=== PATIENT | female | born 1945 | race Caucasian/White ===

== ENCOUNTER 2016-09-23 14:14 | Outpatient (CLI) | payer MEDICARE, BC | END 2016-09-23 14:15 | disposition home or self-care (01) | LOC: MADLAB 14:14 | PROVIDERS: ATTEND Internal Medicine Rheumatology | DX: L40.50 Arthropathic psoriasis, unspecified (principal); N39.0 Urinary tract infection, site not specified | CPT/HCPCS: 36415; 87077; 87086; 87186 ==

== ENCOUNTER 2016-12-14 11:19 | Outpatient (CLI) | payer MEDICARE, BC ==
[2016-12-14 11:49] LABS: #Basophils 0.1 thou/uL (0.0-0.2); #Eosinphils 0.1 thou/uL (0.0-0.7); #Lymphocytes 2.5 thou/uL (1.20-3.40); #Monocytes 0.5 thou/uL (0.11-0.59); %Basophils 1.2 % (0.0-1.0); %Eosinophils 1.8 % (0.0-10.0); %Lymphocytes 34.7 % (21.0-51.0); %Monocytes 6.4 % (0.0-10.0); %Neutrophils 55.9 % (42.0-75.0); Hemoglobin 11.6 g/dL (12.0-16.0); Mean Corpuscular HGB CONC 34.8 g/dL (32.0-36.0); Mean Corpuscular Hemoglobin 31.4 pg (27.0-31.0); Mean Corpuscular Volume 90.2 fl (81.0-99.0); Mean Platelet Volume 9.2 fL (7.4-10.4); Platelet Count 178 thou/uL (130-400); RBC Distribution Width 12.7 % (11.5-14.5); Red Blood Cell (RBC) Count 3.68 mill/uL (4.20-5.40); White Blood Cell (WBC) Count 7.1 thou/uL (4.8-10.8)
[2016-12-14 12:50] LABS: ALT (SGPT) 23 U/L (0-55); AST (SGOT) 40 U/L (5-34); Albumin 4.1 g/dL (3.4-4.8); Alkaline Phosphatase 69 U/L (40-150); Anion Gap 19 mmol/L (10-20); BUN (Urea Nitrogen) 12 mg/dL (9.8-20.1); Bilirubin, Total 0.5 mg/dL (0.2-1.2); Calc. Creatinine Clearance 0 mL/min (70-130); Calcium 9.5 mg/dL (7.8-10.44); Carbon Dioxide 21 mmol/L (23-31); Chloride 99 mmol/L (98-107); Estimated GFR-MDRD 59; Globulin 3.5 g/dL (2.4-3.5); Glucose 291 mg/dL (80-115); Protein, Total 7.6 g/dL (5.8-8.1); Sodium 135 mmol/L (136-145)
== END 2016-12-14 11:20 | disposition home or self-care (01) ==
LOC: MADLAB 11:19
PROVIDERS: ATTEND Internal Medicine Rheumatology
DX: L40.50 Arthropathic psoriasis, unspecified (principal)
CPT/HCPCS: 36415; 80053; 85025; 85652; 86140

== ENCOUNTER 2017-03-02 08:28 | Outpatient (CLI) | payer MEDICARE, BC ==
[2017-03-02 09:04] LABS: Hemoglobin A1c 10.8 % (4.0-6.0)
[2017-03-02 09:16] LABS: ALT (SGPT) 57 U/L (8-55); AST (SGOT) 82 U/L (5-34); Albumin 4.3 g/dL (3.4-4.8); Alkaline Phosphatase 80 U/L (40-150); Anion Gap 19 mmol/L (10-20); BUN (Urea Nitrogen) 15 mg/dL (9.8-20.1); Bilirubin, Total 0.6 mg/dL (0.2-1.2); Calc. Creatinine Clearance 0 mL/min (70-130); Calcium 9.6 mg/dL (7.8-10.44); Carbon Dioxide 20 mmol/L (23-31); Chloride 103 mmol/L (98-107); Estimated GFR-MDRD 71; Glucose 88 mg/dL (80-115); Potassium 3.8 mmol/L (3.5-5.1); Protein, Total 8.3 g/dL (6.0-8.3); Sodium 138 mmol/L (136-145)
[2017-03-02 09:36] LABS: Free T4 (Free Thyroxine) 1.23 ng/dL (0.70-1.48); Thyroid Stimulating Hormone 8.9573 uIU/mL (0.35-4.94)
== END 2017-03-02 08:29 | disposition home or self-care (01) ==
LOC: MADLAB 08:28
PROVIDERS: ATTEND Internal Medicine Endocrinology, Diabetes & Metabolism
DX: E11.65 Type 2 diabetes mellitus with hyperglycemia (principal); E03.9 Hypothyroidism, unspecified; I10 Essential (primary) hypertension
CPT/HCPCS: 36415; 80053; 83036; 84439; 84443

== ENCOUNTER 2017-05-12 13:57 | Outpatient (CLI) | payer MEDICARE, BC ==
[2017-05-12 14:38] LABS: ALT (SGPT) 45 U/L (8-55); AST (SGOT) 73 U/L (5-34); Albumin 3.9 g/dL (3.4-4.8); Alkaline Phosphatase 101 U/L (40-150); Anion Gap 16 mmol/L (10-20); BUN (Urea Nitrogen) 13 mg/dL (9.8-20.1); Bilirubin, Total 0.6 mg/dL (0.2-1.2); Calc. Creatinine Clearance 0 mL/min (70-130); Carbon Dioxide 22 mmol/L (23-31); Chloride 98 mmol/L (98-107); Estimated GFR-MDRD 47; Globulin 3.8 g/dL (2.4-3.5); Glucose 447 mg/dL (80-115); Potassium 4.1 mmol/L (3.5-5.1); Protein, Total 7.7 g/dL (6.0-8.3); Sodium 132 mmol/L (136-145)
[2017-05-12 14:50] LABS: #Basophils 0.1 thou/uL (0.0-0.2); #Eosinphils 0.1 thou/uL (0.0-0.7); #Lymphocytes 1.8 thou/uL (1.20-3.40); #Monocytes 0.3 thou/uL (0.11-0.59); #Neutrophils 3.2 thou/uL (1.40-6.50); %Eosinophils 2.1 % (0.0-10.0); %Lymphocytes 32.2 % (21.0-51.0); %Monocytes 5.9 % (0.0-10.0); %Neutrophils 58.7 % (42.0-75.0); Hemoglobin 11.4 g/dL (12.0-16.0); Mean Corpuscular HGB CONC 33.8 g/dL (32.0-36.0); Mean Corpuscular Hemoglobin 31.9 pg (27.0-31.0); Mean Corpuscular Volume 94.3 fl (81.0-99.0); Mean Platelet Volume 10.5 fL (7.4-10.4); Platelet Count 159 thou/uL (130-400); RBC Distribution Width 14.1 % (11.5-14.5); Red Blood Cell (RBC) Count 3.58 mill/uL (4.20-5.40); White Blood Cell (WBC) Count 5.5 thou/uL (4.8-10.8)
== END 2017-05-12 13:58 | disposition home or self-care (01) ==
LOC: MADLAB 13:57
PROVIDERS: ATTEND Internal Medicine Rheumatology
DX: L40.50 Arthropathic psoriasis, unspecified (principal)
CPT/HCPCS: 36415; 80053; 85025; 85652; 86140

== ENCOUNTER 2017-07-18 14:36 | Outpatient (CLI) | payer MEDICARE, BC ==
[2017-07-18 16:07] LABS: Anion Gap 21 mmol/L (10-20); BUN (Urea Nitrogen) 14 mg/dL (9.8-20.1); Calc. Creatinine Clearance 0 mL/min (70-130); Calcium 9.7 mg/dL (7.8-10.44); Carbon Dioxide 22 mmol/L (23-31); Chloride 98 mmol/L (98-107); Estimated GFR-MDRD 43; Glucose 492 mg/dL (83-110); Potassium 4.5 mmol/L (3.5-5.1); Sodium 136 mmol/L (136-145)
[2017-07-19 18:00] LABS: Bilirubin Negative (Negative); Blood, Urine Negative (Negative); Clarity CLEAR (Clear); Glucose, Urine (Dipstick) >=1000 mg/dL (Negative); Leukocyte Negative (Negative); Nitrite Negative (Negative); Protein, Urine (Dipstick) Negative (Neg-Trace); Urobilinogen 0.2 mg/dL (0.2-1.0)
[2017-07-19 18:10] LABS: Bacteria/HPF 2+ HPF (None Seen); Hyaline Casts/LPF 0-3 HYALINE CAST LPF (0-3 Hyaline); RBC/HPF 0-3 HPF (0-3); Squamous Epithelial None Seen HPF (0-3); WBC/HPF 21-50 HPF (0-3)
== END 2017-07-18 14:37 | disposition home or self-care (01) ==
LOC: MADLAB 14:36
PROVIDERS: ATTEND Internal Medicine Infectious Disease
DX: N39.0 Urinary tract infection, site not specified (principal)
CPT/HCPCS: 36415; 80048; 81001; 87077; 87086; 87186

== ENCOUNTER 2017-08-16 16:37 | Outpatient (CLI) | payer MEDICARE, BC ==
[2017-08-16 17:10] LABS: #Basophils 0.1 thou/uL (0.0-0.2); #Eosinphils 0.1 thou/uL (0.0-0.7); #Lymphocytes 3.3 thou/uL (1.20-3.40); #Monocytes 0.5 thou/uL (0.11-0.59); #Neutrophils 5.5 thou/uL (1.40-6.50); %Eosinophils 1.2 % (0.0-10.0); %Lymphocytes 34.9 % (21.0-51.0); %Monocytes 4.9 % (0.0-10.0); Hemoglobin 12.4 g/dL (12.0-16.0); Mean Corpuscular HGB CONC 34.5 g/dL (32.0-36.0); Mean Corpuscular Hemoglobin 31.6 pg (27.0-31.0); Mean Corpuscular Volume 91.5 fl (81.0-99.0); Mean Platelet Volume 10.5 fL (7.4-10.4); Platelet Count 190 thou/uL (130-400); RBC Distribution Width 12.1 % (11.5-14.5); Red Blood Cell (RBC) Count 3.92 mill/uL (4.20-5.40); White Blood Cell (WBC) Count 9.5 thou/uL (4.8-10.8)
[2017-08-16 17:26] LABS: ALT (SGPT) 45 U/L (8-55); AST (SGOT) 54 U/L (5-34); Albumin 4.3 g/dL (3.4-4.8); Alkaline Phosphatase 84 U/L (40-150); Anion Gap 19 mmol/L (10-20); BUN (Urea Nitrogen) 18 mg/dL (9.8-20.1); Bilirubin, Total 0.5 mg/dL (0.2-1.2); CRP (Inflammatory) 1.07 mg/dL (= or < 0.5); Calc. Creatinine Clearance 0 mL/min (70-130); Calcium 9.8 mg/dL (7.8-10.44); Carbon Dioxide 24 mmol/L (23-31); Chloride 97 mmol/L (98-107); Estimated GFR-MDRD 46; Globulin 4.1 g/dL (2.4-3.5); Glucose 292 mg/dL (83-110); Potassium 3.8 mmol/L (3.5-5.1); Protein, Total 8.4 g/dL (6.0-8.3); Sodium 136 mmol/L (136-145)
== END 2017-08-16 16:38 | disposition home or self-care (01) ==
LOC: MADLAB 16:37
PROVIDERS: ATTEND Internal Medicine Rheumatology
DX: L40.50 Arthropathic psoriasis, unspecified (principal)
CPT/HCPCS: 36415; 80053; 85025; 85652; 86140

== ENCOUNTER 2017-09-29 14:05 | Outpatient (CLI) | payer MEDICARE, BC ==
[2017-09-29 20:17] LABS: Hemoglobin A1c 12.3 % (4.0-6.0)
[2017-09-29 20:35] LABS: Free T4 (Free Thyroxine) 1.25 ng/dL (0.70-1.48)
== END 2017-09-29 14:06 | disposition home or self-care (01) ==
LOC: MADLAB 14:05
PROVIDERS: ATTEND Internal Medicine Endocrinology, Diabetes & Metabolism
DX: E03.9 Hypothyroidism, unspecified (principal); I10 Essential (primary) hypertension; E11.65 Type 2 diabetes mellitus with hyperglycemia
CPT/HCPCS: 36415; 83036; 84439; 84443

== ENCOUNTER 2018-02-15 13:42 | Emergency (ER) | payer MEDICARE, BC ==
[~2018-02-15 13:42] MED LIST: Iopamidol 370 76% 100 ML VIAL ONE; Sodium Chloride 0.9% 1,000 ML BAG ONE; Sodium Chloride 0.9% 100 ML BAG ONE
[2018-02-15 14:34] LABS: ALT (SGPT) 31 U/L (8-55); AST (SGOT) 28 U/L (5-34); Albumin 4.2 g/dL (3.4-4.8); Alkaline Phosphatase 83 U/L (40-150); Anion Gap 21 mmol/L (10-20); BUN (Urea Nitrogen) 12 mg/dL (9.8-20.1); Bilirubin, Total 1.6 mg/dL (0.2-1.2); Calc. Creatinine Clearance 0 mL/min (70-130); Calcium 9.8 mg/dL (7.8-10.44); Carbon Dioxide 22 mmol/L (23-31); Chloride 90 mmol/L (98-107); Estimated GFR-MDRD 36; Globulin 4.3 g/dL (2.4-3.5); Glucose 377 mg/dL (83-110); Potassium 4.2 mmol/L (3.5-5.1); Protein, Total 8.5 g/dL (6.0-8.3); Sodium 129 mmol/L (136-145)
--- NOTE | 2018-02-15 14:38 | RAD ---
SINGLE VIEW CHEST: Date: 02/15/18 COMPARISON: 01/27/16. HISTORY: Altered mental status. FINDINGS: Single view of the chest shows a normal sized cardiomediastinal silhouette. There is no evidence of c onsolidation, mass, or pleural effusion. The bones are unremarkable. IMPRESSION: No evidence of acute cardiopulmonary disease. POS: [facility]
[2018-02-15 14:48] LABS: Hemoglobin 13.3 g/dL (12.0-16.0); Lymphocytes 26 % (21-51); MDiff Complete? YES; Mean Corpuscular HGB CONC 33.1 g/dL (32.0-36.0); Mean Corpuscular Hemoglobin 28.6 pg (27.0-31.0); Mean Corpuscular Volume 86.5 fL (78.0-98.0); Monocytes 5 % (0-10); Neutrophil 67 % (42-75); PLT Morphology Comment Appears Adequate; Platelet Count 220 thou/uL (130-400); RBC Distribution Width 12.1 % (11.5-14.5); Reactive Lymphocytes 2 % (0-10); Red Blood Cell (RBC) Count 4.64 mill/uL (4.20-5.40); White Blood Cell (WBC) Count 13.2 thou/uL (4.8-10.8)
[2018-02-15] MEDS ORDERED: Acetaminophen 500 MG TAB ONE (15:21)
[2018-02-15] MEDS ORDERED: Ondansetron HCl/PF 4 MG/2 ML Vial ONE (15:21)
[2018-02-15] MEDS ORDERED: Vancomycin HCl 500 MG VIAL ONE (15:21)
[2018-02-15] MEDS ORDERED: Piperacillin/Tazobactam 3.375 GM VIAL ONE (15:21)
[2018-02-15 16:08] LABS: Bilirubin Negative (Negative); Blood, Urine Small (Negative); Clarity Slightly Cloudy (Clear); Glucose, Urine (Dipstick) >=1000 mg/dL (Negative); Leukocyte Small (Negative); Nitrite Positive (Negative); Protein, Urine (Dipstick) 100 mg/dL (Neg-Trace); Specific Gravity, Urine 1.015 (1.005-1.030); Urobilinogen 0.2 mg/dL (0.2-1.0)
[2018-02-15 16:09] LABS: Bacteria/HPF 1+ HPF (None Seen)
--- NOTE | 2018-02-15 16:21 | CT ---
CT ABDOMEN AND PELVIS WITH IV CONTRAST: 02/15/18 HISTORY: Nausea, vomiting, elevated WBCs, psoriasis. FINDINGS: Comparison is made with exam of 03/29/15. The lung bases are clear. The patient is postcholecystectomy. The liver, spleen, pancreas, adrenal gl ands and left kidney are unremarkable. There are new right perinephric inflammatory changes. Residual left perinephric inflammatory changes are chronic. No calculi seen in the kidneys, ureters or the ur inary bladder. The previously noted left sided calcific densities (adjacent to the left ureter) are l ikely phleboliths. No free air, free fluid or lymphadenopathy seen in the abdomen or pelvis. There are vascular calcific ations without evidence of aneurysmal dilatation of the abdominal aorta. There are mild degenerative changes in the spine. IMPRESSION: Findings are suspicious for right sided pyelonephritis. POS: [facility]
== END 2018-02-15 16:00 | disposition short-term general hospital (02) ==
LOC: MADERS 13:42
DX: A41.9 Sepsis, unspecified organism (principal); R65.10 Systemic inflammatory response syndrome (SIRS) of non-infectious origin without acute organ dysfunction; E11.9 Type 2 diabetes mellitus without complications; E03.9 Hypothyroidism, unspecified; E78.5 Hyperlipidemia, unspecified; I10 Essential (primary) hypertension; Z79.899 Other long term (current) drug therapy
CPT/HCPCS: 71045; 74177; 80053; 81003; 81015; 83605; 84443; 85025; 87040; 87077; 87086; 93005; 96374; 96375; A4353; J2405; J2543; J3370; J7050

== ENCOUNTER 2018-02-28 13:04 | Outpatient (CLI) | payer MEDICARE, BC ==
[2018-02-28 13:59] LABS: #Basophils 0.1 thou/uL (0.0-0.2); #Eosinphils 0.1 thou/uL (0.0-0.7); #Lymphocytes 2.8 thou/uL (1.20-3.40); #Monocytes 0.4 thou/uL (0.11-0.59); #Neutrophils 3.7 thou/uL (1.40-6.50); %Basophils 0.8 % (0.0-1.0); %Eosinophils 1.7 % (0.0-10.0); %Lymphocytes 39.9 % (21.0-51.0); %Monocytes 5.2 % (0.0-10.0); %Neutrophils 52.4 % (42.0-75.0); Hemoglobin 10.5 g/dL (12.0-16.0); Mean Corpuscular HGB CONC 32.6 g/dL (32.0-36.0); Mean Corpuscular Hemoglobin 28.5 pg (27.0-31.0); Mean Corpuscular Volume 87.6 fL (78.0-98.0); Mean Platelet Volume 7.9 fL (7.4-10.4); Platelet Count 201 thou/uL (130-400); RBC Distribution Width 12.5 % (11.5-14.5); Red Blood Cell (RBC) Count 3.68 mill/uL (4.20-5.40)
[2018-02-28 14:08] LABS: ALT (SGPT) 26 U/L (8-55); AST (SGOT) 40 U/L (5-34); Albumin 4.1 g/dL (3.4-4.8); Alkaline Phosphatase 71 U/L (40-150); Anion Gap 21 mmol/L (10-20); BUN (Urea Nitrogen) 10 mg/dL (9.8-20.1); Bilirubin, Total 0.4 mg/dL (0.2-1.2); Calc. Creatinine Clearance 0 mL/min (70-130); Calcium 9.3 mg/dL (7.8-10.44); Carbon Dioxide 22 mmol/L (23-31); Chloride 99 mmol/L (98-107); Estimated GFR-MDRD 65; Globulin 3.2 g/dL (2.4-3.5); Glucose 238 mg/dL (83-110); Protein, Total 7.3 g/dL (6.0-8.3); Sodium 138 mmol/L (136-145)
[2018-02-28 17:20] LABS: CRP (Inflammatory) Less than 0.50 mg/dL (= or < 0.5)
== END 2018-02-28 13:05 | disposition home or self-care (01) ==
LOC: MADLAB 13:04
PROVIDERS: ATTEND Internal Medicine Infectious Disease
DX: A41.9 Sepsis, unspecified organism (principal); Z79.2 Long term (current) use of antibiotics
CPT/HCPCS: 80053; 85025; 86140

== ENCOUNTER 2018-03-07 12:40 | Outpatient (CLI) | payer MEDICARE, BC ==
[2018-03-07 14:03] LABS: #Basophils 0.1 thou/uL (0.0-0.2); #Eosinphils 0.2 thou/uL (0.0-0.7); #Lymphocytes 3.2 thou/uL (1.20-3.40); #Monocytes 0.5 thou/uL (0.11-0.59); #Neutrophils 3.4 thou/uL (1.40-6.50); %Eosinophils 2.3 % (0.0-10.0); %Lymphocytes 43.5 % (21.0-51.0); %Monocytes 6.5 % (0.0-10.0); %Neutrophils 46.7 % (42.0-75.0); Hemoglobin 10.7 g/dL (12.0-16.0); Mean Corpuscular HGB CONC 32.6 g/dL (32.0-36.0); Mean Corpuscular Hemoglobin 28.8 pg (27.0-31.0); Mean Corpuscular Volume 88.4 fL (78.0-98.0); Mean Platelet Volume 9.3 fL (7.4-10.4); Platelet Count 203 thou/uL (130-400); RBC Distribution Width 12.6 % (11.5-14.5); Red Blood Cell (RBC) Count 3.72 mill/uL (4.20-5.40); White Blood Cell (WBC) Count 7.3 thou/uL (4.8-10.8)
[2018-03-07 14:13] LABS: ALT (SGPT) 48 U/L (8-55); AST (SGOT) 64 U/L (5-34); Alkaline Phosphatase 69 U/L (40-150); Anion Gap 21 mmol/L (10-20); BUN (Urea Nitrogen) 13 mg/dL (9.8-20.1); Bilirubin, Total 0.5 mg/dL (0.2-1.2); Calc. Creatinine Clearance 0 mL/min (70-130); Calcium 9.4 mg/dL (7.8-10.44); Carbon Dioxide 23 mmol/L (23-31); Chloride 96 mmol/L (98-107); Estimated GFR-MDRD 59; Globulin 3.8 g/dL (2.4-3.5); Glucose 368 mg/dL (83-110); Protein, Total 7.8 g/dL (6.0-8.3); Sodium 136 mmol/L (136-145)
[2018-03-07 20:16] LABS: CRP (Inflammatory) 1.26 mg/dL (= or < 0.5)
[2018-03-07 20:37] LABS: Follow-up Chemistry Comp? YES; Follow-up Result - Chemistry REPORT FAXED
== END 2018-03-07 12:41 | disposition home or self-care (01) ==
LOC: MADLAB 12:40
PROVIDERS: ATTEND Internal Medicine Infectious Disease
DX: Z51.81 Encounter for therapeutic drug level monitoring (principal); Z79.2 Long term (current) use of antibiotics
CPT/HCPCS: 80053; 85025; 86140

== ENCOUNTER 2018-03-15 13:00 | Outpatient (CLI) | payer MEDICARE, BC ==
[2018-03-15 14:06] LABS: ALT (SGPT) 61 U/L (8-55); AST (SGOT) 88 U/L (5-34); Albumin 4.3 g/dL (3.4-4.8); Alkaline Phosphatase 85 U/L (40-150); Anion Gap 32 mmol/L (10-20); BUN (Urea Nitrogen) 14 mg/dL (9.8-20.1); Bilirubin, Total 0.3 mg/dL (0.2-1.2); Calc. Creatinine Clearance 0 mL/min (70-130); Calcium 9.5 mg/dL (7.8-10.44); Carbon Dioxide 18 mmol/L (23-31); Chloride 94 mmol/L (98-107); Estimated GFR-MDRD 72; Globulin 3.5 g/dL (2.4-3.5); Glucose 153 mg/dL (83-110); Potassium 4.2 mmol/L (3.5-5.1); Protein, Total 7.8 g/dL (6.0-8.3); Sodium 140 mmol/L (136-145)
[2018-03-15 16:59] LABS: CRP (Inflammatory) 1.78 mg/dL (= or < 0.5)
== END 2018-03-15 13:01 | disposition home or self-care (01) ==
LOC: MADLAB 13:00
PROVIDERS: ATTEND Internal Medicine Infectious Disease
DX: Z51.81 Encounter for therapeutic drug level monitoring (principal); Z79.2 Long term (current) use of antibiotics
CPT/HCPCS: 36415; 80053; 86140

== ENCOUNTER 2018-03-21 12:08 | Outpatient (CLI) | payer MEDICARE, BC ==
[2018-03-21 12:59] LABS: #Basophils 0.1 thou/uL (0.0-0.2); #Eosinphils 0.2 thou/uL (0.0-0.7); #Lymphocytes 2.4 thou/uL (1.20-3.40); #Monocytes 0.5 thou/uL (0.11-0.59); #Neutrophils 3.7 thou/uL (1.40-6.50); %Basophils 1.1 % (0.0-1.0); %Eosinophils 2.5 % (0.0-10.0); %Lymphocytes 35.6 % (21.0-51.0); %Monocytes 6.6 % (0.0-10.0); %Neutrophils 54.1 % (42.0-75.0); Hemoglobin 10.7 g/dL (12.0-16.0); Mean Corpuscular Hemoglobin 29.7 pg (27.0-31.0); Mean Corpuscular Volume 87.2 fL (78.0-98.0); Mean Platelet Volume 8.5 fL (7.4-10.4); Platelet Count 171 thou/uL (130-400); RBC Distribution Width 13.2 % (11.5-14.5); White Blood Cell (WBC) Count 6.8 thou/uL (4.8-10.8)
[2018-03-21 13:10] LABS: ALT (SGPT) 66 U/L (8-55); AST (SGOT) 81 U/L (5-34); Albumin 4.1 g/dL (3.4-4.8); Alkaline Phosphatase 89 U/L (40-150); Anion Gap 23 mmol/L (10-20); BUN (Urea Nitrogen) 17 mg/dL (9.8-20.1); Bilirubin, Total 0.4 mg/dL (0.2-1.2); Calc. Creatinine Clearance 0 mL/min (70-130); Calcium 9.7 mg/dL (7.8-10.44); Carbon Dioxide 20 mmol/L (23-31); Chloride 95 mmol/L (98-107); Estimated GFR-MDRD 49; Globulin 3.3 g/dL (2.4-3.5); Glucose 366 mg/dL (83-110); Potassium 4.2 mmol/L (3.5-5.1); Protein, Total 7.4 g/dL (6.0-8.3); Sodium 134 mmol/L (136-145)
[2018-03-21 17:00] LABS: CRP (Inflammatory) 1.41 mg/dL (= or < 0.5)
[2018-03-21 18:59] LABS: Follow-up Chemistry Comp? YES; Follow-up Result - Chemistry REPORT FAXED
== END 2018-03-21 12:09 | disposition home or self-care (01) ==
LOC: MADLAB 12:08
PROVIDERS: ATTEND Internal Medicine Infectious Disease
DX: Z51.81 Encounter for therapeutic drug level monitoring (principal); Z79.2 Long term (current) use of antibiotics
CPT/HCPCS: 80053; 85025; 86140

== ENCOUNTER 2018-03-29 13:29 | Outpatient (CLI) | payer MEDICARE, BC ==
[2018-03-29 14:00] LABS: #Basophils 0.1 thou/uL (0.0-0.2); #Eosinphils 0.1 thou/uL (0.0-0.7); #Lymphocytes 2.8 thou/uL (1.20-3.40); #Monocytes 0.4 thou/uL (0.11-0.59); #Neutrophils 3.2 thou/uL (1.40-6.50); %Basophils 1.5 % (0.0-1.0); %Eosinophils 2.1 % (0.0-10.0); %Monocytes 6.1 % (0.0-10.0); %Neutrophils 48.4 % (42.0-75.0); Hemoglobin 10.6 g/dL (12.0-16.0); Mean Corpuscular HGB CONC 32.5 g/dL (32.0-36.0); Mean Corpuscular Hemoglobin 28.7 pg (27.0-31.0); Mean Corpuscular Volume 88.3 fL (78.0-98.0); Platelet Count 192 thou/uL (130-400); RBC Distribution Width 13.4 % (11.5-14.5); White Blood Cell (WBC) Count 6.6 thou/uL (4.8-10.8)
[2018-03-29 14:12] LABS: ALT (SGPT) 58 U/L (8-55); AST (SGOT) 83 U/L (5-34); Albumin 3.8 g/dL (3.4-4.8); Alkaline Phosphatase 78 U/L (40-150); Anion Gap 20 mmol/L (10-20); BUN (Urea Nitrogen) 11 mg/dL (9.8-20.1); Bilirubin, Total 0.4 mg/dL (0.2-1.2); Calc. Creatinine Clearance 0 mL/min (70-130); Calcium 9.6 mg/dL (7.8-10.44); Carbon Dioxide 23 mmol/L (23-31); Chloride 98 mmol/L (98-107); Estimated GFR-MDRD 69; Globulin 3.8 g/dL (2.4-3.5); Glucose 265 mg/dL (83-110); Potassium 3.8 mmol/L (3.5-5.1); Protein, Total 7.6 g/dL (6.0-8.3); Sodium 137 mmol/L (136-145)
[2018-03-29 20:12] LABS: Reticulocyte Count 2.8 % (0.5-1.5)
[2018-03-29 20:17] LABS: CRP (Inflammatory) 0.97 mg/dL (= or < 0.5)
== END 2018-03-29 13:30 | disposition home or self-care (01) ==
LOC: MADLAB 13:29
PROVIDERS: ATTEND Internal Medicine Infectious Disease
DX: D50.9 Iron deficiency anemia, unspecified (principal); Z79.2 Long term (current) use of antibiotics
CPT/HCPCS: 36415; 80053; 83540; 83550; 85025; 85046; 86140

== ENCOUNTER 2018-08-30 18:51 | Outpatient (CLI) | payer MEDICARE, BC ==
[2018-08-30 18:59] LABS: Bilirubin Negative (Negative); Blood, Urine Trace (Negative); Glucose, Urine (Dipstick) >=1000 mg/dL (Negative); Leukocyte Negative (Negative); Nitrite Negative (Negative); Protein, Urine (Dipstick) Negative (Neg-Trace); Urobilinogen 0.2 mg/dL (0.2-1.0); pH, Urine 5.5 (5.0-9.0)
[2018-08-30 19:04] LABS: Clarity Hazy (Clear); Specific Gravity, Urine 1.004 (1.002-1.036)
[2018-08-30 19:05] LABS: Bacteria/HPF 3+ HPF (None Seen); Other Microscopic Description C&S SET UP; RBC/HPF None Seen HPF (0-3); Squamous Epithelial 0-3 HPF (0-3); WBC/HPF 0-3 HPF (0-3)
== END 2018-08-30 18:52 | disposition home or self-care (01) ==
LOC: MADLAB 18:51
PROVIDERS: ATTEND Internal Medicine Infectious Disease
DX: N39.0 Urinary tract infection, site not specified (principal)
CPT/HCPCS: 81001; 87077; 87086; 87186

== ENCOUNTER 2018-11-28 06:34 | Emergency (ER) | payer MEDICARE, BC ==
[2018-11-28 07:20] LABS: Bilirubin Negative (Negative); Blood, Urine Small (Negative); Glucose, Urine (Dipstick) Negative (Negative); Leukocyte Moderate (Negative); Nitrite Negative (Negative); Protein, Urine (Dipstick) Trace mg/dL (Neg-Trace); Urobilinogen 0.2 mg/dL (0.2-1.0)
[2018-11-28 07:22] LABS: Specific Gravity, Urine 1.008 (1.002-1.036)
[2018-11-28 07:23] LABS: Clarity Hazy (Clear); RBC/HPF 0-3 HPF (0-3)
[2018-11-28 07:24] LABS: WBC/HPF 21-50 HPF (0-3)
[2018-11-28 07:25] LABS: Bacteria/HPF 1+ HPF (None Seen)
[2018-11-28 07:50] LABS: #Basophils 0.2 thou/uL (0.0-0.2); #Eosinphils 0.1 thou/uL (0.0-0.7); #Lymphocytes 3.9 thou/uL (1.20-3.40); #Monocytes 0.9 thou/uL (0.11-0.59); #Neutrophils 5.7 thou/uL (1.40-6.50); %Basophils 1.5 % (0.0-1.0); %Eosinophils 1.2 % (0.0-10.0); %Lymphocytes 36.2 % (21.0-51.0); %Monocytes 8.1 % (0.0-10.0); Hemoglobin 11.2 g/dL (12.0-16.0); Mean Corpuscular HGB CONC 32.4 g/dL (32.0-36.0); Mean Corpuscular Hemoglobin 28.9 pg (27.0-31.0); Mean Corpuscular Volume 89.1 fL (78.0-98.0); Mean Platelet Volume 8.7 fL (7.4-10.4); Platelet Count 211 thou/uL (130-400); RBC Distribution Width 12.7 % (11.5-14.5); Red Blood Cell (RBC) Count 3.89 mill/uL (4.20-5.40); White Blood Cell (WBC) Count 10.7 thou/uL (4.8-10.8)
[2018-11-28 08:04] LABS: ALT (SGPT) 29 U/L (8-55); AST (SGOT) 30 U/L (5-34); Albumin 4.2 g/dL (3.4-4.8); Alkaline Phosphatase 82 U/L (40-150); Anion Gap 17 mmol/L (10-20); BUN (Urea Nitrogen) 15 mg/dL (9.8-20.1); Bilirubin, Total 0.5 mg/dL (0.2-1.2); Calc. Creatinine Clearance 0 mL/min (70-130); Calcium 9.9 mg/dL (7.8-10.44); Carbon Dioxide 25 mmol/L (23-31); Chloride 97 mmol/L (98-107); Estimated GFR-MDRD 52; Globulin 4.3 g/dL (2.4-3.5); Glucose 130 mg/dL (83-110); Protein, Total 8.5 g/dL (6.0-8.3); Sodium 135 mmol/L (136-145)
--- NOTE | 2018-11-28 08:07 | CT ---
FExam: Abdomen CT without contrast Pelvic CT without contrast HISTORY: Bilateral renal pain. Fever. Chills. COMPARISON: None FINDINGS: Abdomen CT: Lung bases: Lung bases are clear of any masses or consolidation. Subtle groundglass opacity in the ri ght lower lobe may represent a focal area of edema or infiltrate, measuring 1.2 cm. Heart size: Normal. Aorta: Normal caliber Solid organs: Limited evaluation due to the lack of IV contrast. Nodularity of the liver may represen t cirrhotic change. Right hepatic lobe measures 21 cm. Grossly the spleen, pancreas and adrenal gland s are unremarkable Lymph nodes: No gastrohepatic, retrocrural or periportal lymphadenopathy Gallbladder: Surgically absent Mesentery: No mass, lymphadenopathy, free air or free fluid Kidneys: Bilaterally no hydronephrosis, nephrolithiasis or perinephric fat stranding. Bilateral urete rs have a normal caliber. No hydroureter, periureteral fat stranding or ureterolithiasis. Element canal: Limited evaluation due to lack of IV contrast. No evidence of bowel obstruction. Ileoc ecal junction is normal. Appendix is not appreciated. No inflammation of the cecal apex. Minimal dive rticulosis of the sigmoid colon. No diverticulitis CT PELVIS: No mass, adenopathy, free air or free fluid. Surgically absent uterus. Urinary bladder: Unremarkable. Osseous structures: No lytic or blastic lesions IMPRESSION: 1. No evidence of obstructive uropathy 2. Mild nodularity of the liver suggesting cirrhotic change. Hepatomegaly. 3. Groundglass opacity in the right lung base which may represent a focal infiltrate or edema.
[2018-11-28] MEDS ORDERED: Ondansetron ODT 4 MG TAB ONE (09:04)
[2018-11-28] MEDS ORDERED: cefTRIAXone\\ROCEPHIN 1 GM VIAL ONE (09:04)
[2018-11-28] MEDS ORDERED: Lidocaine 1% 20 ML MDV ONE (09:04)
== END 2018-11-28 09:18 | disposition home or self-care (01) ==
LOC: MADERS 06:34
DX: N12 Tubulo-interstitial nephritis, not specified as acute or chronic (principal); I10 Essential (primary) hypertension; E11.9 Type 2 diabetes mellitus without complications; Z79.4 Long term (current) use of insulin; E03.9 Hypothyroidism, unspecified; E78.5 Hyperlipidemia, unspecified; Z79.899 Other long term (current) drug therapy
CPT/HCPCS: 74176; 80053; 81001; 85025; 87077; 87086; 87186; 96372; J0696; J2001; Q0162

== ENCOUNTER 2019-11-09 13:16 | Outpatient (CLI) | payer MEDICARE, BC | END 2019-11-09 13:17 | disposition home or self-care (01) | LOC: MADLAB 13:16 | PROVIDERS: ATTEND Urology | DX: N39.0 Urinary tract infection, site not specified (principal) | CPT/HCPCS: 87086 ==

== ENCOUNTER 2020-07-10 13:25 | Outpatient (CLI) | payer MEDICARE, BC | END 2020-07-10 13:26 | disposition home or self-care (01) | LOC: MADLAB 13:25 | PROVIDERS: ATTEND Internal Medicine Infectious Disease | DX: N39.0 Urinary tract infection, site not specified (principal); A49.9 Bacterial infection, unspecified | CPT/HCPCS: 87086 ==

== ENCOUNTER 2020-10-31 11:17 | Outpatient (CLI) | payer MEDICARE, BC | END 2020-10-31 11:18 | disposition home or self-care (01) | LOC: MADLAB 11:17 | PROVIDERS: ATTEND Urology | DX: N39.0 Urinary tract infection, site not specified (principal) | CPT/HCPCS: 87086 ==

== ENCOUNTER 2021-01-08 15:45 | Outpatient (CLI) | payer MEDICARE, BC | END 2021-01-08 15:46 | disposition home or self-care (01) | LOC: MADLAB 15:45 | PROVIDERS: ATTEND Urology | DX: N39.0 Urinary tract infection, site not specified (principal) | CPT/HCPCS: 87086 ==

== ENCOUNTER 2021-01-19 15:48 | Emergency (ER) | payer MEDICARE, BC ==
[2021-01-19 16:45] LABS: Bilirubin Negative (Negative); Blood, Urine Trace (Negative); Glucose, Urine (Dipstick) 100 mg/dL (Negative); Ketone, Urine Negative (Negative); Leukocyte Moderate (Negative); Nitrite Negative (Negative); Protein, Urine (Dipstick) 30 mg/dL (Neg-Trace); Urobilinogen 0.2 mg/dL (Less than 2)
[2021-01-19 16:46] LABS: Clarity Hazy (Clear)
[2021-01-19 16:51] LABS: RBC/HPF 0-3 HPF (0-3); Squamous Epithelial 0-3 HPF (0-3); WBC/HPF 21-50 HPF (0-3)
[2021-01-19 16:52] LABS: Bacteria/HPF 3+ HPF (None Seen); Yeast-Budding Rare HPF (None Seen)
== END 2021-01-19 17:15 | disposition home or self-care (01) ==
LOC: MADERS 15:48
DX: L03.116 Cellulitis of left lower limb (principal); N39.0 Urinary tract infection, site not specified; E11.9 Type 2 diabetes mellitus without complications; E03.9 Hypothyroidism, unspecified; E78.5 Hyperlipidemia, unspecified; Z79.899 Other long term (current) drug therapy
CPT/HCPCS: 81003; 81015; 87077; 87086; 87186

== ENCOUNTER 2021-01-29 14:09 | Emergency (ER) | payer MEDICARE, BC | END 2021-01-29 15:24 | disposition home or self-care (01) | LOC: MADERS 14:09 | DX: L98.8 Other specified disorders of the skin and subcutaneous tissue (principal); R60.0 Localized edema; M79.89 Other specified soft tissue disorders; E11.9 Type 2 diabetes mellitus without complications; Z79.4 Long term (current) use of insulin; E03.9 Hypothyroidism, unspecified; E78.5 Hyperlipidemia, unspecified; E78.00 Pure hypercholesterolemia, unspecified; I10 Essential (primary) hypertension; M19.90 Unspecified osteoarthritis, unspecified site; K76.0 Fatty (change of) liver, not elsewhere classified; K31.1 Adult hypertrophic pyloric stenosis | CPT/HCPCS: 99283 ==

== ENCOUNTER 2021-08-04 16:44 | Emergency (ER) | payer MEDICARE, BC | END 2021-08-04 18:15 | disposition home or self-care (01) | LOC: MADERS 16:44 | DX: S73.101A Unspecified sprain of right hip, initial encounter (principal); W18.39XA Other fall on same level, initial encounter; I10 Essential (primary) hypertension; E11.9 Type 2 diabetes mellitus without complications; Z79.4 Long term (current) use of insulin; E03.9 Hypothyroidism, unspecified; E78.5 Hyperlipidemia, unspecified; M19.90 Unspecified osteoarthritis, unspecified site; E78.00 Pure hypercholesterolemia, unspecified; Z79.82 Long term (current) use of aspirin; Z79.899 Other long term (current) drug therapy | CPT/HCPCS: 72170 ==

== ENCOUNTER 2022-01-13 16:06 | Outpatient (CLI) | payer MEDICARE, BC | END 2022-01-13 16:07 | disposition home or self-care (01) | LOC: MADRAD 16:06 | PROVIDERS: ATTEND Family Medicine | DX: S92.514A Nondisplaced fracture of proximal phalanx of right lesser toe(s), initial encounter for closed fracture (principal); S92.531A Displaced fracture of distal phalanx of right lesser toe(s), initial encounter for closed fracture ==

== ENCOUNTER 2022-05-15 16:17 | Emergency (ER) | payer MEDICARE, BC ==
[2022-05-15] MEDS ORDERED: Ibuprofen 400 MG TAB ONE (17:06)
[2022-05-15] MEDS ORDERED: cefTRIAXone\\ROCEPHIN 1 GM VIAL ONE (17:06)
[2022-05-15] MEDS ORDERED: Sodium Chloride 0.9% 100 ML ONE (17:06)
[2022-05-15] MEDS ORDERED: Sodium Chloride 0.9% 1,000 ML ONE ×2 (17:06→17:42)
[2022-05-15 17:11] LABS: #Lymphocytes 0.6 thou/uL (1.20-3.40); #Monocytes 0.6 thou/uL (0.11-0.59); #Neutrophils 10.8 thou/uL (1.40-6.50); %Basophils 0.3 % (0.0-1.0); %Eosinophils 0.2 % (0.0-10.0); %Lymphocytes 5.2 % (21.0-51.0); %Monocytes 4.9 % (0.0-10.0); %Neutrophils 89.4 % (42.0-75.0); Hemoglobin 9.9 g/dL (12.0-16.0); Mean Corpuscular HGB CONC 32.7 g/dL (32.0-36.0); Mean Corpuscular Volume 85.7 fL (78.0-98.0); Mean Platelet Volume 10.8 fL (7.4-10.4); Platelet Count 133 thou/uL (130-400); RBC Distribution Width 12.3 % (11.5-14.5); Red Blood Cell (RBC) Count 3.53 mill/uL (4.20-5.40); White Blood Cell (WBC) Count 12.1 thou/uL (4.8-10.8)
[2022-05-15 17:15] LABS: Bilirubin Negative (Negative); Blood, Urine Large (Negative); Clarity Cloudy (Clear); Glucose, Urine (Dipstick) 100 mg/dL (Negative); Ketone, Urine Negative (Negative); Leukocyte Large (Negative); Nitrite Positive (Negative); Protein, Urine (Dipstick) 100 mg/dL (Neg-Trace); Specific Gravity, Urine 1.015 (1.005-1.030); pH, Urine 6.5 (5.0-9.0)
[2022-05-15 17:26] LABS: ALT (SGPT) 18 U/L (8-55); AST (SGOT) 27 U/L (5-34); Albumin 3.6 g/dL (3.4-4.8); Alkaline Phosphatase 92 U/L (40-110); Anion Gap 17 mmol/L (10-20); BUN (Urea Nitrogen) 20 mg/dL (9.8-20.1); Bilirubin, Total 1.5 mg/dL (0.2-1.2); Calc. Creatinine Clearance 0 mL/min (70-130); Calcium 9.4 mg/dL (7.8-10.44); Carbon Dioxide 22 mmol/L (23-31); Chloride 101 mmol/L (98-107); Estimated GFR 43; Globulin 3.5 g/dL (2.4-3.5); Glucose 171 mg/dL (83-110); Lipase 4 U/L (8-78); Protein, Total 7.1 g/dL (5.8-8.1); Sodium 136 mmol/L (136-145)
[2022-05-15 17:32] LABS: Bacteria/HPF 4+ HPF (None Seen); RBC/HPF 21-50 HPF (0-3); Squamous Epithelial 0-3 HPF (0-3); WBC/HPF Greater Than 50 HPF (0-3)
[2022-05-15 19:43] LABS: Lactic Acid 0.7 mmol/L (0.5-2.2)
== END 2022-05-15 22:02 | disposition short-term general hospital (02) ==
LOC: MADERS 16:17
DX: A41.9 Sepsis, unspecified organism (principal); N39.0 Urinary tract infection, site not specified; I10 Essential (primary) hypertension; E11.9 Type 2 diabetes mellitus without complications; E03.9 Hypothyroidism, unspecified; E78.00 Pure hypercholesterolemia, unspecified; M19.90 Unspecified osteoarthritis, unspecified site; Z79.4 Long term (current) use of insulin; Z79.82 Long term (current) use of aspirin; Z79.899 Other long term (current) drug therapy
CPT/HCPCS: 36415; 71045; 80053; 81003; 81015; 83605; 83690; 83880; 84484; 85025; 87040; 87086; 96361; 96365; J0696; J3490; J7050

== ENCOUNTER 2022-07-09 10:49 | Emergency (ER) | payer MEDICARE, BC ==
[2022-07-09] MEDS ORDERED: Bacitracin 1 PK ONE (11:37)
== END 2022-07-09 11:45 | disposition home or self-care (01) ==
LOC: MADERS 10:49
DX: S91.111A Laceration without foreign body of right great toe without damage to nail, initial encounter (principal); L03.031 Cellulitis of right toe; E11.9 Type 2 diabetes mellitus without complications; E03.9 Hypothyroidism, unspecified; E78.00 Pure hypercholesterolemia, unspecified; I10 Essential (primary) hypertension; W26.9XXA Contact with unspecified sharp object(s), initial encounter
CPT/HCPCS: 99283

== ENCOUNTER 2022-07-11 13:08 | Emergency (ER) | payer MEDICARE, BC | END 2022-07-11 14:13 | disposition home or self-care (01) | LOC: MADERS 13:08 | DX: E11.621 Type 2 diabetes mellitus with foot ulcer (principal); L97.519 Non-pressure chronic ulcer of other part of right foot with unspecified severity; E78.00 Pure hypercholesterolemia, unspecified; E03.9 Hypothyroidism, unspecified; I10 Essential (primary) hypertension | CPT/HCPCS: 99282 ==

== ENCOUNTER 2025-05-09 09:48 | Outpatient (CLI) | payer MEDICARE, BC ==
[2025-05-09 10:21] LABS: ALT (SGPT) 14 U/L (Less than 34); AST (SGOT) 27 U/L (11-34); Albumin 4.1 g/dL (3.1-4.5); Alkaline Phosphatase 58 U/L (40-110); Anion Gap 18 mmol/L (10-20); BUN (Urea Nitrogen) 32 mg/dL (9.8-20.1); Bilirubin, Total 0.6 mg/dL (0.3-1.2); Calc. Creatinine Clearance 0 mL/min (70-130); Calcium 9.2 mg/dL (7.8-10.44); Carbon Dioxide 22 mmol/L (23-31); Chloride 103 mmol/L (98-107); Globulin 3.5 g/dL (2.4-3.5); Glucose 173 mg/dL (83-110); Potassium 4.1 mmol/L (3.5-5.1); Sodium 139 mmol/L (136-145)
[2025-05-09 10:23] LABS: #Basophils 0.1 thou/uL (0.0-0.2); #Eosinophils 0.2 thou/uL (0.0-0.7); #Lymphocytes 2.3 thou/uL (1.20-3.40); #Monocytes 0.5 thou/uL (0.11-0.59); #Neutrophils 2.9 thou/uL (1.40-6.50); %Basophils 1.7 % (0.0-1.0); %Eosinophils 3.8 % (0.0-10.0); %Lymphocytes 38.0 % (21.0-51.0); %Monocytes 8.5 % (0.0-10.0); %Neutrophils 48.0 % (42.0-75.0); Hematocrit 33.3 % (36.0-47.0); Hemoglobin 11.2 g/dL (12.0-16.0); Mean Corpuscular Hemoglobin 30.3 pg (27.0-31.0); Mean Corpuscular Volume 90.3 fl (78.0-98.0); Platelet Count 171 10x3/uL (130-400); Red Blood Cell (RBC) Count 3.68 mill/uL (4.20-5.40); White Blood Cell (WBC) Count 6.1 10x3/uL (4.8-10.8)
[2025-05-09 17:02] LABS: Ferritin 712.56 ng/mL (10-291); Free T4 (Free Thyroxine) 1.12 ng/dL (0.70-1.48); Vitamin B12 603.0 pg/mL (211-911)
== END 2025-05-09 09:49 | disposition home or self-care (01) ==
LOC: MADLAB 09:48
PROVIDERS: ATTEND Internal Medicine Endocrinology, Diabetes & Metabolism
DX: E11.65 Type 2 diabetes mellitus with hyperglycemia (principal); I10 Essential (primary) hypertension; E78.5 Hyperlipidemia, unspecified; E53.8 Deficiency of other specified B group vitamins; D53.9 Nutritional anemia, unspecified
CPT/HCPCS: 36415; 80053; 82607; 82728; 83036; 83540; 84439; 84443; 85025